=== PATIENT | male | born 1955 | race African-American/Black ===

== ENCOUNTER 2023-08-18 07:26 | Emergency (ER) | payer MEDICARE, MEDICAID ==
[~2023-08-18] VITALS: Ht 177.8 cm; Wt 100.0 kg
[2023-08-18 07:38] VITALS: O2SAT 99
[2023-08-18] MEDS ORDERED: IBUP-2030 MT (10:20)
[2023-08-18] MEDS ORDERED: AMOX1TAB16 MT (10:20)
[2023-08-18] MEDS ORDERED: ACET-2708 MT (10:21)
[2023-08-18] MEDS: KETOROLAC 60MG/2ML VIAL IM ONE (10:53)
[2023-08-18] MEDS: HYDROCODONE/ACETAMINOPHEN 10/325MG TABLET PO ONE (10:54)
[2023-08-18 11:11] VITALS: BP 145/98; PULSE 98; RESP 15; TEMP 98.5
== END 2023-08-18 11:12 | disposition home or self-care (01) ==
LOC: ER 07:26
DX: K02.9 Dental caries, unspecified (principal)
CPT/HCPCS: 99283; 96372; J1885